=== PATIENT | male | born 1950 | race Two or more races ===

== ENCOUNTER 2019-09-28 08:36 | Day surgery (SDC) | payer OTHER ==
[~2019-09-28] VITALS: Ht 170.2 cm; Wt 83.5 kg
[2019-09-28] VITALS (7 sets, daily range): BP systolic 126–145; BP diastolic 68–82
--- NOTE | 2019-09-28 07:24 | Pre-Procedure Note/Attestation ---
Pre-Procedure Note/Attestation Complete Prior to Procedure Planned Procedure: right Procedure Narrative: shoulder diagnostic arthroscopy, sad, Indications for Procedure Pre-Operative Diagnosis: right shoulder internal derangment Attestation I attest that I discussed the nature of the procedure; its benefits; risks and complications; and alternatives (and the risks and benefits of such alternatives ), prior to the procedure, with the patient (or the patient's legal patient service representative). I attest that, if there was a reasonable possibility of needing a blood transfusion, the patient (or the patient's legal patient service representative) was given the [facility] standardized written summary, pursuant to the [place] Blood Safety Act ([place] Health and Safety Code # 1645, as amended). I attest that I re-evaluated the patient just prior to the surgery and that there has been no change in the patient's H&P, except as documented below: Colten Alcaraz MD Sep 28, 2019 07:24
--- NOTE | 2019-09-28 07:25 | Operative Note - PDOC ---
Operative Note Operative Note Pre-op Diagnosis: right shoulder internal derangment Procedure: see op report Post-op Diagnosis: same as pre-op plus Operative Findings: consistent w/pre-op dx studies Specimen: none Complications: none Condition: stable Estimated Blood Loss: none Implant(s) used?: No Colten Alcaraz MD Sep 28, 2019 07:25
[~2019-09-28 08:36] MED LIST: D5 1/2NS 1,000 ML IV SCH; HYDROcodone/Acetamin 5/325 tab ORAL PRN; HYDROmorphone 1mg/ml Carpuject SUBQ PRN; Tylenol #3 tab (300mg/30mg) ORAL PRN; ceFAZolin 1gm IVPB IVPB ONE; celeBREX 200mg Cap **SURGERY PATIENTS ONLY ORAL ONE; oxyCONTIN 20mg tab ORAL ONE
[2019-09-28] MEDS ORDERED: ALFUZOSIN HCL10 MG PO (10:29)
[2019-09-28] MEDS ORDERED: FENOFIBRATE160 MG ORAL (10:31)
[2019-09-28] MEDS ORDERED: BUPROPION XL300 MG ORAL (10:32)
[2019-09-28] MEDS ORDERED: BUSPAR10 MG ORAL (10:33)
[2019-09-28] MEDS ORDERED: SEROQUEL XR50 MG ORAL (10:34)
[2019-09-28] MEDS ORDERED: ASPIR 8181 MG ORAL (10:35)
[2019-09-28] MEDS ORDERED: AMOXICILLI250 MG/5 M ORAL (10:39)
[2019-09-28] MEDS ORDERED: celeBREX 200mg Cap **SURGERY PATIENTS ONLY ORAL ONE (11:16)
[2019-09-28] MEDS ORDERED: oxyCONTIN 20mg tab ORAL ONE (11:16)
[2019-09-28] MEDS ORDERED: fentaNYL 100 mcg/2 mL IV ONE (12:54)
[2019-09-28] MEDS ORDERED: Midazolam 2mg/2ml Inj ONE (12:54)
[2019-09-28] MEDS ORDERED: Propofol 200mg/20ml IV ONE (12:55)
[2019-09-28] MEDS ORDERED: Ropivacaine 5mg/ml Vial 30ml INJ ONE (12:55)
[2019-09-28] MEDS ORDERED: Ketorolac 30mg Inj ONE ×2 (12:55→13:25)
[2019-09-28] MEDS ORDERED: Lidocaine 1% MPF 10mg/ml 5ml ONE (12:55)
[2019-09-28] MEDS ORDERED: EPINEPHrine 1mg/1ml Amp ONE (13:24)
[2019-09-28] MEDS ORDERED: Duramorph PF 5mg/10ml amp ONE (13:25)
[2019-09-28] MEDS ORDERED: Kenalog-40 1ml Vial ONE (13:25)
[2019-09-28] MEDS ORDERED: LR 1000ml ONE (13:30)
[2019-09-28] MEDS ORDERED: Sterile Water Irrig 1000ml IRRIG ONE (13:30)
[2019-09-28] MEDS ORDERED: NS Irrig 4000ml IRRIG ONE ×4 (13:47→14:50)
[2019-09-28] MEDS ORDERED: Duramorph PF 5mg/10ml amp EPIDUR ONE ×2 (14:16→14:41)
[2019-09-28] MEDS ORDERED: LR 1000ml 1,000 ML IVLG SCH (14:35)
--- NOTE | 2019-09-28 14:35 | Anethesia Preoperative Eval ---
Anesthesia Pre-op PMH/ROS General Date of Evaluation: Sep 28, 2019 Time of Evaluation: 13:20 Anesthesiologist: Dave ASA Score: ASA 2 Mallampati Score Class I : Soft palate, uvula, fauces, pillars visible Class II: Soft palate, uvula, fauces visible Class III: Soft palate, base of uvula visible Class IV: Only hard plate visible Mallampati Classification: Class II Surgeon: Kieran Diagnosis: R shoulder pain Surgical Procedure: R shoulder scope Anesthesia History: none Family History: no anesthesia problems Allergies: Coded Allergies: No Known Allergies (Unverified , 09/27/19) Medications: see eMAR Patient NPO?: Yes Past Medical History Cardiovascular: Reports: HTN - borderline; Denies: CAD, SC, valve dz, arrhythmia, other Pulmonary: Denies: asthma, COPD, [place], other Gastrointestinal/Genitourinary: Reports: GERD; Denies: CRI, ESRD, other Neurologic/Psychiatric: Reports: depression/anxiety, other - chronic pain; Denies: dementia, CVA, TIA Endocrine: Denies: DM, hypothyroidism, steroids, other HEENT: Denies: cataract (L), cataract (R), glaucoma, [place] (L), [place] (R), other Hematology/Immune: Denies: anemia, DVT, bleeding disorder, other Musculoskeletal/Integumentary: Reports: OA; Denies: RA, DJD, DDD, edema, other PMH Narrative: as above PSxH Narrative: Spine Sx, cervical fusion Anesthesia Pre-op Phys. Exam Physician Exam Last Vital Signs Date Time Temp Pulse Resp B/P (MAP) Pulse Ox O2 Delivery O2 Flow Rate FiO2 09/28/19 11:01 97.9 73 18 134/76 99 Room Air Constitutional: NAD Neurologic: CN 2-12 intact Cardiovascular: RRR, no M/R/G Respiratory: CTA Airway Exam Mallampati Score: Class II MO: full Neck: flexible ROM: limited Teeth: missing Dentures: no upper, no lower Anesthesia Pre-op A/P Labs see chart Studies Pre-op Studies: EKG - NSR Risk Assessment & Plan Assessment: ASA 2 Plan: Ga with LMA R brachial plexus block Status Change Before Surgery: No Pre-Antibiotics Drug: Ancef 1gr Given Within 1 Hr of Incision: Yes Time Given: 14:22 Trevor Acosta MD Sep 28, 2019 14:35
[2019-09-28] MEDS ORDERED: DiphenhydrAMINE 50mg/ml Inj IVP PRN (14:45)
[2019-09-28] MEDS ORDERED: Ketorolac 30mg Inj IV PRN (14:45)
[2019-09-28] MEDS ORDERED: Meperidine 25mg/0.5ml Inj (FOR RIGORS ONLY) IV PRN (14:45)
--- NOTE | 2019-09-28 15:13 | Immediate Post-Op Evaluation ---
Immediate Post-Op Evalulation Immediate Post-Op Evalulation Procedure: R shoulder arthroscopy with subacromion decompression Date of Evaluation: Sep 28, 2019 Time of Evaluation: 15:12 IV Fluids: 700 Blood Products: none Estimated Blood Loss: min Urinary Output: none Blood Pressure Systolic: 142 Blood Pressure Diastolic: 78 Pulse Rate: 68 Respiratory Rate: 20 O2 Sat by Pulse Oximetry: 99 Temperature (Fahrenheit): 97.6 Pain Score (1-10): 2 Nausea: No Vomiting: No Complications none Patient Status: awake, patent, none Hydration Status: adequate Trevor Acosta MD Sep 28, 2019 15:13
--- NOTE | 2019-09-28 16:46 | 48 Hour Post Anesthesia Eval ---
Post Anesthesia Evaluation Procedure: R shoulder arthroscopy with subacromion decompression Date of Evaluation: Sep 28, 2019 Time of Evaluation: 16:45 Blood Pressure Systolic: 126 0: 68 Pulse Rate: 74 Respiratory Rate: 20 Temperature (Fahrenheit): 97.6 O2 Sat by Pulse Oximetry: 98 Airway: patent Nausea: No Vomiting: No Hydration Status: adequate Cardiopulmonary Status: stable Mental Status/LOC: patient returned to baseline Follow-up Care/Observations: n/a Post-Anesthesia Complications: none Follow-up care needed: ready to discharge Trevor Acosta MD Sep 28, 2019 16:46
--- NOTE | 2019-09-28 20:15 | Operative Note - Dictated ---
DATE OF OPERATION: 09/28/2019 PREOPERATIVE DIAGNOSES: 1. Right shoulder internal derangement. 2. Right shoulder impingement syndrome/bursitis. POSTOPERATIVE DIAGNOSES: 1. Grade 2 chondral damage Glenoid. 2. Anterior labral tear. 3. Synovitis glenohumeral joint. 4. Subacromial bursitis with acromial spur. 5. Partial articular-sided rotator cuff tear less than 25%. PROCEDURE: 1. Right shoulder diagnostic arthroscopy and extensive intraarticular debridement. 2. Right shoulder subacromial decompression bursectomy. SURGEON: Colten Alcaraz M.D. ANESTHESIA: Interscalene with general. INDICATION FOR PROCEDURE: The patient is a pleasant gentleman who has had progressive right shoulder pain. He had MRI, which showed a possible SLAP tear with partial rotator cuff tear. He had clinical evidence of impingement syndrome. After failing conservative treatment, he elected to undergo right shoulder arthroscopy, extensive intra-articular debridement with subacromial decompression bursectomy. Risks, limitations, expectations, and complications of procedure were discussed in detail. All questions addressed. DESCRIPTION OF PROCEDURE: After informed consent was obtained and the patient was brought to the operating room, the patient was placed under interscalene general anesthesia. The patient was then carefully placed in beach chair position. Right shoulder was prepped and draped in a sterile manner. Time-out was performed. Inferolateral stab incision was then made. Trocar was introduced into the glenohumeral joint. Shaver was then placed in the rotator interval. Debridement of the chondral damage of the head was performed. Debridement of the anterior labral tear was completed. Once that was done, the undersurface of the acromion was identified and synovectomy was completed. At this point, once extensive intraarticular debridement of the shoulder was performed, the camera was repositioned in subacromial space. The hypertrophic bursal tissue identified and removed. The acromial spur was identified. Acromioplasty was started from lateral to medial completed from posterior to anterior. Once that was done, the instruments were removed. Portal sites were closed with 3-0 Monocryl sutures. The patient was awoken and taken to recovery room with stable vital signs. ESTIMATED BLOOD LOSS: None. COMPLICATIONS: None. SPECIMENS: None. IMPLANTS: None. Coletn Alcaraz M.D. DR: BHAVNA JOB#: [id number] CC: DOLORES
== END 2019-09-28 15:45 | disposition home or self-care (01) ==
LOC: SUR 08:36
DX: M75.41 Impingement syndrome of right shoulder (principal); S43.401A Unspecified sprain of right shoulder joint, initial encounter; M75.111 Incomplete rotator cuff tear or rupture of right shoulder, not specified as traumatic; M65.9 Synovitis and tenosynovitis, unspecified; M71.9 Bursopathy, unspecified; I10 Essential (primary) hypertension; K21.9 Gastro-esophageal reflux disease without esophagitis; M19.90 Unspecified osteoarthritis, unspecified site; Z98.1 Arthrodesis status; X58.XXXA Exposure to other specified factors, initial encounter; Y92.9 Unspecified place or not applicable
CPT/HCPCS: 29823; J0171; J0690; J1885; J2250; J2704; J2795; J3010; J3301; J7120; 94003; 94150